=== PATIENT | female | born 1970 | race Caucasian/White ===

== ENCOUNTER 2019-01-17 05:57 | Emergency (ER) | payer SELFPAY ==
[2019-01-17] MEDS ORDERED: OXYCODONE-ACETAMINOPHEN 5-325 MG TABLET PO ONE (06:20)
[2019-01-17] MEDS ORDERED: ONDANSETRON 4 MG TAB.RAPDIS PO ONE (06:20)
--- NOTE | 2019-01-17 06:21 | ER Document Report ---
HPI - HPI Time Seen by Provider: 01/17/19 06:12 Pain Level: 2 Context: Patient is a 48-year-old female that comes to the emergency department for chief complaint of right ankle injury. She states that she inverted the ankle stepping awkwardly off of a step. This happened at 1 PM. She states that it became swollen but she elevated and iced it. She has been taking ibuprofen. She states that instead of resolving the pain increased. She denies any other locations of pain, she denies any other injuries. She denies any daily medications or diagnosed medical problems. - REPRODUCTIVE Reproductive: DENIES: : Past Medical History - General Information source: Patient - Social History Smoking Status: Never Smoker Frequency of alcohol use: None Drug Abuse: None Lives with: Family Family History: Reviewed & Not Pertinent Surgical Hx: Negative - Immunizations Immunizations up to date: Yes Hx Diphtheria, Pertussis, Tetanus Vaccination: Yes Vertical Provider Document - CONSTITUTIONAL General Appearance: WD/WN, No Apparent Distress - INFECTION CONTROL TRAVEL OUTSIDE OF THE [place] IN LAST 30 DAYS: No - HEENT HEENT: Atraumatic, Normocephalic - NECK Neck: Normal Inspection - RESPIRATORY Respiratory: Breath Sounds Normal, No Respiratory Distress - CARDIOVASCULAR Cardiovascular: Regular Rate, Regular Rhythm - GI/ABDOMEN Gastrointestinal: Abdomen Soft, Abdomen Non-Tender - BACK Back: Normal Inspection - MUSCULOSKELETAL/EXTREMETIES Musculoskeletal/Extremeties: MAEW, FROM, Tender - Tender with some soft tissue swelling over the dorsal and lateral aspects of the right foot and ankle. Range of motion intact but painful. Capillary refill and sensation intact. Normal leg, knee, hip exams. No open wounds. - NEURO Level of Consciousness: Awake, Alert, Appropriate - DERM Integumentary: Warm, Dry, No Rash Course - Re-evaluation Re-evalutation: X-ray negative for any acute findings. I discussed the heel spur, plantar fasciitis, recommendations in regards to this. Examination and work-up consistent with sprain. Discussed treatment, expectations, follow-up, and return precautions. Patient states understanding and agreement. - Vital Signs Vital signs: Temp Pulse Resp BP Pulse Ox 98.4 F 84 128/95 H 97 01/17/19 06:03 01/17/19 06:03 01/17/19 06:03 01/17/19 06:03 Procedures - Immobilization Right ankle Pre-Proc Neuro Vasc Exam: Normal Immobilizer type: Dexter wrap, Ankle stirrup Performed by: PCT Post-Proc Neuro Vasc Exam: Normal Alignment checked and good: Yes Discharge - Discharge Clinical Impression: Right ankle injury Qualifiers: Encounter type: initial encounter Qualified Code(s): S99.911A - Unspecified injury of right ankle, initial encounter Condition: Stable Disposition: HOME, SELF-CARE Instructions: Use of Crutches ([facility]) Additional Instructions: Your x-ray shows a heel spur as we discussed but no fracture of the ankle or concerning findings otherwise. Your evaluation shows soft tissue swelling consistent with an ankle sprain (probably of the ATF ligament), I recommend that you elevate, ice 3-4 times a day, take your [id number] anti-inflammatory such as ibuprofen, use the ankle stirrup and Dexter wrap with the crutches for the first 2 to 3 days. After swelling and pain resolve resume normal activity. Follow-up with primary care. Return for any concerning symptoms including severe swelling or pain. Forms: Return to Work
[2019-01-17 06:38] VITALS: BP 123/79
--- NOTE | 2019-01-17 06:40 | RADIOLOGY REPORT (SQ) ---
Right ankle three view on 01/17/2019 at 6:16 AM CLINICAL INDICATION: Rolled ankle, pain COMPARISON: None FINDINGS: Small plantar calcaneal spur is noted. The ankle mortise is intact. Visualized joints are well aligned. No other bony abnormality is noted. IMPRESSION: No acute bony abnormality.
[2019-01-17] MEDS ORDERED: ONDANSETRON 4 MG TAB.RAPDIS ONE (06:48)
== END 2019-01-17 07:14 | disposition home or self-care (01) ==
LOC: ER 05:57
PROC: 2W3QX1Z Immobilization of Right Lower Leg using Splint (ICD-10-PCS; principal; 2019-01-17)
DX: S99.911A Unspecified injury of right ankle, initial encounter (principal); X50.1XXA Overexertion from prolonged static or awkward postures, initial encounter
CPT/HCPCS: 99283; 73610; 29515; L1902; S0119